=== PATIENT | female | born 1960 | race Caucasian/White ===

== ENCOUNTER → 2016-09-02 | Outpatient (CLI) | payer OTHER ==
[~2016-09-02] MED LIST: ALBU8I INH; ALBUAER3 INH; ALLO100T PO; AMLO10 PO; ASPI1TAB7 PO; ASPI81TA81 PO; ATEN-102 PO; ATEN50TA PO; ATOR80TA41 PO; GADODIAMIDE PF 287 MG/ML 5 ML VIAL (for RAD MRI) IV ONE; LIPI80TA PO; NEUP300I4 SQ; PROT40TA PO; TYLE3 PO; TYLETAB34 PO; VITA20003 PO; [UNRECOGNIZED DRUG - CODE] IJ
--- NOTE | 2016-09-02 17:58 | RADRPT ---
EXAM DATE/TIME: 09/02/2016 17:02 [facility] COMPARISON: No previous studies available for comparison. INDICATIONS : Left kidney lesion. CONTRAST: 15 cc Omniscan (gadodiamide) IV MEDICAL HISTORY : Hypertension. Leukopenia SURGICAL HISTORY : Hysterectomy. Tonsillectomy. hiatal hernia. ENCOUNTER: Subsequent ACUITY: 2 months PAIN SCORE: 0/10 LOCATION: abdomen TECHNIQUE: Multiplanar, multisequence magnetic resonance imaging of the abdomen was performed without and with i ntravenous contrast. FINDINGS: There are bilateral renal cysts and hepatic cysts identified. Pancreas, spleen, adrenal glands are un remarkable. The mid pole of the left kidney a T2 hypointense 2.1 cm mass is identified. There is no a ppreciable internal enhancement following contrast administration however pre-contrast T1-weighted im ages are limited secondary to body habitus. It is difficult to exclude a solid mass. It does not meet criteria for a simple cyst. There is no lymphadenopathy. CONCLUSION: 1. There are hepatic and renal cysts identified bilaterally, renal cysts under a centimeter in size. These are benign. 2. There is a circumscribed T2 hypointense, T1 hypointense mass left kidney without definite internal enhancement but does not meet criteria for a simple cyst. A CT abdomen with and without contrast wou ld be helpful for further evaluation. Ziggy Carter MD on September 02, 2016 at 17:53 Board Certified Radiologist. This report was verified electronically.
== END ==
LOC: HRAD 15:43
PROVIDERS: ATTEND Urology
DX: N28.9 Disorder of kidney and ureter, unspecified (principal)
CPT/HCPCS: 74183; A9579

== ENCOUNTER → 2017-03-05 | Outpatient (CLI) | payer OTHER ==
[~2017-03-05] MED LIST changes: -ALBU8I INH; -ASPI1TAB7 PO; -ATEN-102 PO; -ATOR80TA41 PO; -GADODIAMIDE PF 287 MG/ML 5 ML VIAL (for RAD MRI) IV ONE; +GADODIAMIDE PF 287 MG/ML 5 ML VIAL (for RAD MRI) IVCONTRAST ONE; +HYOS0.128 PO; +OMEP40CA2 PO; -TYLE3 PO; -[UNRECOGNIZED DRUG - CODE] IJ
--- NOTE | 2017-03-05 12:40 | RADRPT ---
EXAM DATE/TIME: 03/05/2017 10:32 [facility] COMPARISON: CT ABDOMEN W/O CONTRAST, February 22, 2015, 10:20. MRI ABDOMEN W & W/O CONTRAST, September 02, 2016, 17 :02. INDICATIONS : Left kidney lesion. CONTRAST: 12 cc Omniscan (gadodiamide) IV MEDICAL HISTORY : Hypertension. SURGICAL HISTORY : Hysterectomy. Tonsillectomy. Umbilical hernia repair. Appendectomy. ENCOUNTER: [facility] ACUITY: 4-6 months PAIN SCORE: 0/10 LOCATION: Abdomen. TECHNIQUE: Multiplanar, multisequence magnetic resonance imaging of the abdomen was performed without and with i ntravenous contrast. FINDINGS: LIVER: Stable small cysts are seen in the liver. There is no ductal dilatation. BILIARY: Single small gallstone is noted. SPLEEN: Within normal limits. PANCREAS: Within normal limits. ADRENALS: Within normal limits. KIDNEYS: Stable small cyst right kidney. Well-circumscribed hypointense solid mass left kidney that does not show good arterial enhancement. This is not changed in size or configuration. OTHER: Aorta is nonaneurysmal. There is no lymphadenopathy. CONCLUSION: Stable MRI of the kidneys. Hypodense solid mass left kidney is stable in size with no enhancement. Followup in one year is suggested. Jerry Burgess MD FACR on March 05, 2017 at 12:34 Board Certified Radiologist. This report was verified electronically.
== END ==
LOC: HRAD 08:57
PROVIDERS: ATTEND Urology
DX: N28.9 Disorder of kidney and ureter, unspecified (principal)
CPT/HCPCS: 74183; A9579